=== PATIENT | male | born 1965 | race Caucasian/White ===

== ENCOUNTER 2016-11-12 08:56 | Inpatient (IN) | payer MEDICAID, OTHER ==
[~2016-11-12] VITALS: Ht 188 cm; Wt 119.0 kg
[~2016-11-12 08:56] MED LIST: ALBU8.5H8 INH; ASPI-614 PO; ATOR40TA78 PO; BUPR75TA5 PO; CARV12.52 PO; CLOP75TA52 PO; EZET10TA18 PO; FURO-93 PO; GABA300C10 PO; GLIP10TA13 PO; GLIP5TAB; LISI-170 PO; METF10002 PO; NITR0.4T28 SL; POTA10TA11 PO; PRAS10TA4 PO; SERT25TA PO; SITA100T PO
[2016-11-12 10:12] LABS: HEMATOCRIT 34.3 % (39.2-51.8); HEMOGLOBIN 11.2 g/dL (13.7-18.0); WHITE BLOOD COUNT 8.2 x10^3/uL (3.4-10)
[2016-11-12 10:21] LABS: BLOOD UREA NITROGEN 51 mg/dL (7-18)
[2016-11-12 10:24] LABS: ASPARTATE AMINO TRANSFERASE 11 U/L (15-37)
[2016-11-12] MEDS ORDERED: PLEASE ENTER HEIGHT AND WEIGHT MC SCH (10:30)
[2016-11-12] MEDS ORDERED: NITROGLYCERIN 0.4 MG BOTTLE (25 TABS) SL SCH (10:30)
[2016-11-12] MEDS ORDERED: HEPARIN 5,000 UNITS/ML, 1ML IV ONE (11:30)
[2016-11-12] MEDS ORDERED: HEPARIN 5,000 UNITS/ML, 1ML IV PRN (11:30)
[2016-11-12] MEDS ORDERED: HEPARIN 25,000 UNITS/500ML PMX 500 ML IV PRN (11:30)
[2016-11-12 12:01] VITALS: BP 159/83
[2016-11-12] MEDS: HEPARIN 25,000 UNITS/500ML PMX 500 ML IV PRN (12:51)
[2016-11-12 14:00] LABS: XTAL-FLAG NOT PRESENT; YLC-FLAG NOT PRESENT
[2016-11-12 14:01] LABS: PATH.CAST-FLAG NOT PRESENT; SPERM-FLAG NOT PRESENT; SRC-FLAG NOT PRESENT
[2016-11-12 20:02] VITALS: BP 151/80
[2016-11-12] MEDS: ATORVASTATIN 40 MG TABLET PO SCH (20:04)
[2016-11-12] MEDS: CARVEDILOL 12.5 MG TABLET PO SCH (20:04)
[2016-11-12] MEDS: GABAPENTIN 100 MG CAPSULE PO SCH (20:04)
[2016-11-12] MEDS: HEPARIN 5,000 UNITS/ML, 1ML IV PRN (20:05)
[2016-11-13 01:52] VITALS: BP 155/81
[2016-11-13 02:24] LABS: BLOOD UREA NITROGEN 49 mg/dL (7-18)
[2016-11-13] MEDS: HEPARIN 5,000 UNITS/ML, 1ML IV PRN ×3 (03:13→19:53)
[2016-11-13] MEDS: EZETIMIBE 10 MG TABLET PO SCH (07:57)
[2016-11-13] MEDS: ASPIRIN 81 MG TABLET CHEW PO SCH (07:58)
[2016-11-13] MEDS: FUROSEMIDE 20 MG TABLET PO SCH (07:58)
[2016-11-13] MEDS: CARVEDILOL 12.5 MG TABLET PO SCH ×2 (07:58→19:53)
[2016-11-13] MEDS: GABAPENTIN 100 MG CAPSULE PO SCH ×2 (07:58→19:53)
[2016-11-13] MEDS: SITAGLIPTIN 50MG TABLET PO SCH (07:59)
[2016-11-13] MEDS: SERTRALINE 50MG TABLET PO SCH (07:59)
[2016-11-13 08:01] VITALS: BP 157/78
[2016-11-13] MEDS ORDERED: POTASSIUM CHLORIDE 10 MEQ TABLET.ER PO SCH (09:00)
[2016-11-13] MEDS ORDERED: LISINOPRIL 20 MG TABLET PO SCH (09:00)
[2016-11-13] MEDS ORDERED: AMLODIPINE 5 MG TABLET PO SCH (13:00)
[2016-11-13 13:07] VITALS: BP 137/82
[2016-11-13] MEDS: HEPARIN 25,000 UNITS/500ML PMX 500 ML IV PRN (13:07)
[2016-11-13] MEDS: LISINOPRIL 20 MG TABLET PO SCH (13:58)
[2016-11-13 19:52] VITALS: BP 165/81
[2016-11-13] MEDS: ATORVASTATIN 40 MG TABLET PO SCH (19:53)
[2016-11-14] MEDS: CARVEDILOL MC SCH ×2 (02:30→11:21)
[2016-11-14] MEDS ORDERED: DO NOT GIVE MC SCH (02:30)
[2016-11-14] MEDS ORDERED: CHLORHEXIDINE MOUTHWASH 15 ML UDC MM SCH (02:30)
[2016-11-14] MEDS: METOPROLOL MC SCH ×2 (02:30→11:21)
[2016-11-14] MEDS ORDERED: ACETAMINOPHEN 325 MG TABLET PO PRN ×2 (02:30→12:30)
[2016-11-14] MEDS ORDERED: DO NOT GIVE XX SCH (02:30)
[2016-11-14] MEDS ORDERED: METOPROLOL TARTRATE 25 MG TABLET PO ONE (05:00)
[2016-11-14 05:11] VITALS: BP_SYST 158; BP_SYST 160; BP_DIAS 85; BP_DIAS 88
[2016-11-14] MEDS ORDERED: INSULIN ASPART 100 UNITS/ML, PEN SQ-INSULIN SCH (06:00)
[2016-11-14] MEDS ORDERED: EPINEPHRINE 2 MG in SODIUM CHLORIDE 0.9% 248 ML IV SCH (07:30)
[2016-11-14] MEDS ORDERED: CEFUROXIME 1.5 GM in SODIUM CHLORIDE 0.9% 50 ML IVPB PRN (07:30)
[2016-11-14] MEDS ORDERED: REGULAR INSULIN 62.5 UNITS in SODIUM CHLORIDE 0.9% 249.375 ML IV PRN ×2 (07:30→12:29)
[2016-11-14] MEDS ORDERED: MANNITOL PMX 20% 500 ML IVPB PRN (07:30)
[2016-11-14] MEDS ORDERED: VANCOMYCIN 1,700 MG in SODIUM CHLORIDE 0.9% 250 ML IV PRN (07:30)
[2016-11-14] MEDS ORDERED: POTASSIUM CHLORIDE 80 MEQ, SODIUM BICARBONATE 8.4% 10 MEQ, MAGNESIUM SULFATE 0.5 GM, LI... IV PRN (07:30)
[2016-11-14] MEDS ORDERED: PHENYLEPHRINE 10 MG in SODIUM CHLORIDE 0.9% 249 ML IV PRN ×2 (07:30→12:29)
[2016-11-14] MEDS ORDERED: ALBUMIN HUMAN 5% 500 ML IV ONE (07:30)
[2016-11-14] MEDS ORDERED: DEXMEDETOMIDINE 200 MCG in SODIUM CHLORIDE 0.9% 48 ML IV SCH (07:30)
[2016-11-14] MEDS ORDERED: MIDAZOLAM 10MG/2 ML ONE (07:35)
[2016-11-14] MEDS ORDERED: FENTANYL PF 1000 MCG/20ML ONE (07:35)
[2016-11-14] MEDS ORDERED: ROCURONIUM 10 MG/ML ONE (08:11)
[2016-11-14] MEDS ORDERED: PROPOFOL 10 MG/ML, 20ML ONE (08:11)
[2016-11-14] MEDS ORDERED: MUPIROCIN OINT 2%, 22GM TP SCH (09:00)
[2016-11-14] MEDS ORDERED: SODIUM CHLORIDE FLUSH 10ML SYR IVF SCH (09:00)
[2016-11-14] MEDS ORDERED: HEPARIN 1,000 UNITS/ML, 10ML IV ONE (09:06)
[2016-11-14] MEDS ORDERED: PAPAVERINE 30 MG/ML, 2ML IVPush ONE (09:07)
[2016-11-14] MEDS ORDERED: SODIUM BICARB 8.4%, 50ML SYRINGE ONE ×2 (10:54→12:55)
[2016-11-14] MEDS: CARVEDILOL 12.5 MG TABLET PO SCH (11:19)
[2016-11-14] MEDS: ASPIRIN 81 MG TABLET CHEW PO SCH (11:19)
[2016-11-14] MEDS: GABAPENTIN 100 MG CAPSULE PO SCH ×2 (11:20→22:05)
[2016-11-14] MEDS: LISINOPRIL 20 MG TABLET PO SCH (11:20)
[2016-11-14] MEDS: EZETIMIBE 10 MG TABLET PO SCH (11:20)
[2016-11-14] MEDS: SITAGLIPTIN 50MG TABLET PO SCH (11:20)
[2016-11-14] MEDS: FUROSEMIDE 20 MG TABLET PO SCH (11:20)
[2016-11-14] MEDS: SERTRALINE 50MG TABLET PO SCH (11:20)
[2016-11-14] MEDS ORDERED: NOVOSEVEN RT (FACTOR VIIA) RECOMB 1,000 MCG IVPush ONE (12:00)
[2016-11-14] MEDS ORDERED: SODIUM CHLORIDE 0.9% 1,000 ML IV PRN (12:29)
[2016-11-14] MEDS ORDERED: SODIUM CHLORIDE 0.9% 1,000 ML IV ONE (12:29)
[2016-11-14] MEDS ORDERED: DOBUTAMINE 250 MG in SODIUM CHLORIDE 0.9% 230 ML IV PRN (12:29)
[2016-11-14] MEDS ORDERED: NITROGLYCERIN/D5W PMX 250 ML IV PRN (12:29)
[2016-11-14] MEDS ORDERED: morphine SULFATE 10 MG/ML, 1ML IVPush PRN (12:30)
[2016-11-14] MEDS ORDERED: EPINEPHRINE 2 MG in SODIUM CHLORIDE 0.9% 248 ML IV PRN (12:30)
[2016-11-14] MEDS ORDERED: DEXTROSE 4 GM TAB.CHEW PO PRN (12:30)
[2016-11-14] MEDS ORDERED: PROCHLORPERAZINE 5 MG/ML, 2ML IVPush PRN (12:30)
[2016-11-14] MEDS ORDERED: MEPERIDINE/PF 25MG/0.5ML IVPush PRN (12:30)
[2016-11-14] MEDS ORDERED: CEFUROXIME 1.5 GM in SODIUM CHLORIDE 0.9% 50 ML IVPB SCH (12:30)
[2016-11-14] MEDS ORDERED: SODIUM BICARB 8.4%, 50ML SYRINGE IV PRN (12:30)
[2016-11-14] MEDS ORDERED: DEXTROSE 50%, 50ML SYRINGE IVPush PRN (12:30)
[2016-11-14] MEDS ORDERED: LACTATED RINGERS 500 ML IVBOLUS PRN (12:30)
[2016-11-14] MEDS ORDERED: MIDAZOLAM 1 MG/ML, 5ML IVPush PRN (12:30)
[2016-11-14] MEDS ORDERED: ONDANSETRON 2MG/ML, 2ML IVPush PRN (12:30)
[2016-11-14] MEDS ORDERED: BISACODYL 10 MG SUPP PR PRN (12:30)
[2016-11-14] MEDS ORDERED: ACETAMINOPHEN 650 MG SUPP PR PRN (12:30)
[2016-11-14] MEDS ORDERED: GLUCAGON 1 MG IM PRN (12:30)
[2016-11-14] MEDS ORDERED: PROTAMINE SULFATE 10 MG/ML, 25ML ONE (12:54)
[2016-11-14] MEDS ORDERED: LIDOCAINE 2% 100MG/5ML SYRINGE ONE (12:55)
[2016-11-14] MEDS ORDERED: ALBUMIN HUMAN 25% 50 ML ONE (12:55)
[2016-11-14] MEDS ORDERED: AMINOCAPROIC ACID 250 MG/ML, 20ML ONE (12:55)
[2016-11-14] MEDS ORDERED: HEPARIN 1,000 UNITS/ML, 30ML ONE (12:55)
[2016-11-14] MEDS ORDERED: CALCIUM CHLORIDE 10%, 10ML SYR ONE (12:55)
[2016-11-14] MEDS ORDERED: methylPREDNISolone SOD SUCC 125 MG/2 ML ONE (12:56)
[2016-11-14] MEDS ORDERED: HEPARIN 1,000 UNITS/ML, 10ML ONE (12:56)
[2016-11-14] MEDS ORDERED: PAPAVERINE 30 MG/ML, 2ML ONE (12:56)
[2016-11-14] MEDS ORDERED: MAGNESIUM SULFATE 1 GM in SODIUM CHLORIDE 0.9% 50 ML IVPB SCH (13:00)
[2016-11-14] MEDS ORDERED: DEXMEDETOMIDINE 200 MCG in SODIUM CHLORIDE 0.9% 48 ML IV PRN (13:05)
[2016-11-14 13:11] LABS: ABG COLLECTION SITE ARTERIAL LINE
[2016-11-14 13:16] LABS: HEMATOCRIT 26.7 % (39.2-51.8); HEMOGLOBIN 8.7 g/dL (13.7-18.0)
[2016-11-14] MEDS: MAGNESIUM SULFATE 1 GM in SODIUM CHLORIDE 0.9% 50 ML IVPB SCH (13:21)
[2016-11-14] MEDS: DESMOPRESSIN 24 MCG in SODIUM CHLORIDE 0.9% 50 ML IVPB ONE ×2 (13:43→14:32)
[2016-11-14] MEDS: KSCALE TO 4.5 IV SCH ×2 (13:43→19:00)
[2016-11-14] MEDS ORDERED: ALBUTEROL/IPRATROPIUM 2.5MG/0.5MG, 3 ML ONE (17:35)
[2016-11-14] MEDS ORDERED: ALBUTEROL SULFATE 2.5 MG/3 ML NPPB PRN (18:00)
[2016-11-14] MEDS: OXYcodone IR 5MG TABLET PO PRN (18:15)
[2016-11-14 18:44] LABS: HEMATOCRIT 27.3 % (39.2-51.8); HEMOGLOBIN 8.9 g/dL (13.7-18.0)
[2016-11-14] MEDS: CEFUROXIME 1.5 GM in SODIUM CHLORIDE 0.9% 50 ML IVPB SCH (20:16)
[2016-11-14] MEDS: VANCOMYCIN 1,600 MG in SODIUM CHLORIDE 0.9% 250 ML IVPB SCH (20:58)
[2016-11-14] MEDS: SODIUM CHLORIDE FLUSH 10ML SYR IVF SCH (20:59)
[2016-11-14] MEDS: MUPIROCIN OINT 2%, 22GM NAS SCH (20:59)
[2016-11-14] MEDS: ATORVASTATIN 40 MG TABLET PO SCH (22:05)
[2016-11-14] MEDS: DOCUSATE 100 MG CAPSULE PO SCH (22:05)
[2016-11-14] MEDS: INSULIN ASPART 100 UNITS/ML, PEN SQ-INSULIN PRN ×2 (22:09→23:27)
[2016-11-15] MEDS: INSULIN ASPART 100 UNITS/ML, PEN SQ-INSULIN PRN ×3 (00:22→02:34)
[2016-11-15 00:23] LABS: HEMATOCRIT 27.6 % (39.2-51.8); HEMOGLOBIN 8.4 g/dL (13.7-18.0)
[2016-11-15] MEDS: HYDROcodone/APAP 10/325 MG TABLET PO PRN ×2 (00:27→13:48)
[2016-11-15] MEDS: KSCALE TO 4.5 IV SCH ×3 (00:43→13:00)
[2016-11-15 04:19] LABS: ABG COLLECTION SITE ARTERIAL LINE
[2016-11-15] MEDS: OXYcodone IR 5MG TABLET PO PRN ×5 (04:57→21:58)
[2016-11-15] MEDS: INSULIN ASPART 100 UNITS/ML, PEN SQ-INSULIN SCH ×4 (05:59→21:57)
[2016-11-15 06:03] LABS: HEMATOCRIT 25.4 % (39.2-51.8); HEMOGLOBIN 8.2 g/dL (13.7-18.0); WHITE BLOOD COUNT 12.2 x10^3/uL (3.4-10)
[2016-11-15 06:12] LABS: BLOOD UREA NITROGEN 46 mg/dL (7-18)
[2016-11-15 06:19] VITALS: BP 100/56
[2016-11-15] MEDS: CEFUROXIME 1.5 GM in SODIUM CHLORIDE 0.9% 50 ML IVPB SCH (08:35)
[2016-11-15] MEDS: SERTRALINE 50MG TABLET PO SCH (08:35)
[2016-11-15] MEDS: GABAPENTIN 100 MG CAPSULE PO SCH ×2 (08:35→21:54)
[2016-11-15] MEDS: DOCUSATE 100 MG CAPSULE PO SCH ×2 (08:35→21:54)
[2016-11-15] MEDS: ASPIRIN 81 MG TABLET CHEW PO SCH (08:35)
[2016-11-15] MEDS: EZETIMIBE 10 MG TABLET PO SCH (08:35)
[2016-11-15] MEDS: MUPIROCIN OINT 2%, 22GM NAS SCH ×2 (08:36→21:54)
[2016-11-15] MEDS: SODIUM CHLORIDE FLUSH 10ML SYR IVF SCH ×2 (08:36→21:55)
[2016-11-15] MEDS: PANTOPRAZOLE 40 MG IV IVPush SCH (08:36)
[2016-11-15] MEDS: METOPROLOL TARTRATE 25 MG TABLET PO/NG SCH ×2 (08:45→21:55)
[2016-11-15] MEDS: VANCOMYCIN 1,600 MG in SODIUM CHLORIDE 0.9% 250 ML IVPB SCH (09:43)
[2016-11-15] MEDS: CHLORHEXIDINE MOUTHWASH 15 ML UDC MM SCH (12:05)
[2016-11-15] MEDS: MAGNESIUM SULFATE 1 GM in SODIUM CHLORIDE 0.9% 50 ML IVPB SCH (12:06)
[2016-11-15] MEDS ORDERED: FUROSEMIDE 20 MG/2 ML IV ONE (14:00)
[2016-11-15 18:27] VITALS: BP 107/68
[2016-11-15] MEDS: ATORVASTATIN 40 MG TABLET PO SCH (21:54)
[2016-11-16 00:40] VITALS: BP 108/70
[2016-11-16] MEDS: CHLORHEXIDINE MOUTHWASH 15 ML UDC MM SCH ×2 (01:00→12:30)
[2016-11-16] MEDS: HYDROcodone/APAP 10/325 MG TABLET PO PRN ×4 (01:21→20:57)
[2016-11-16] MEDS: OXYcodone IR 5MG TABLET PO PRN (04:03)
[2016-11-16 05:47] LABS: HEMATOCRIT 25.1 % (39.2-51.8); HEMOGLOBIN 8.2 g/dL (13.7-18.0); WHITE BLOOD COUNT 13.2 x10^3/uL (3.4-10)
[2016-11-16 05:48] LABS: ABG COLLECTION SITE LEFT RADIAL; COLLATERAL CIRCULATION TESTING NORMAL
[2016-11-16 06:13] LABS: BLOOD UREA NITROGEN 60 mg/dL (7-18)
[2016-11-16] MEDS: INSULIN ASPART 100 UNITS/ML, PEN SQ-INSULIN SCH ×6 (06:30→20:57)
[2016-11-16 07:21] VITALS: BP 100/85
[2016-11-16] MEDS: DOCUSATE 100 MG CAPSULE PO SCH ×2 (09:00→20:57)
[2016-11-16] MEDS ORDERED: METOPROLOL TARTRATE 25 MG TABLET PO/NG SCH (09:00)
[2016-11-16] MEDS: GABAPENTIN 100 MG CAPSULE PO SCH ×2 (09:49→20:58)
[2016-11-16] MEDS: SERTRALINE 50MG TABLET PO SCH (09:49)
[2016-11-16] MEDS: PANTOPRAZOLE 40 MG IV IVPush SCH (09:49)
[2016-11-16] MEDS: MUPIROCIN OINT 2%, 22GM NAS SCH ×2 (09:49→20:57)
[2016-11-16] MEDS: ASPIRIN 81 MG TABLET CHEW PO SCH (09:49)
[2016-11-16] MEDS: SODIUM CHLORIDE FLUSH 10ML SYR IVF SCH ×2 (09:50→20:58)
[2016-11-16] MEDS: MAGNESIUM SULFATE 1 GM in SODIUM CHLORIDE 0.9% 50 ML IVPB SCH (12:48)
[2016-11-16 14:15] VITALS: BP 115/74
[2016-11-16] MEDS: CARVEDILOL 6.25 MG TABLET PO SCH (17:52)
[2016-11-16] MEDS ORDERED: CARVEDILOL 12.5 MG TABLET PO SCH (18:00)
[2016-11-16 20:00] VITALS: BP 103/63
[2016-11-16] MEDS: ATORVASTATIN 40 MG TABLET PO SCH (20:57)
[2016-11-17] MEDS: CHLORHEXIDINE MOUTHWASH 15 ML UDC MM SCH (00:07)
[2016-11-17] MEDS: INSULIN ASPART 100 UNITS/ML, PEN SQ-INSULIN SCH ×6 (00:11→21:26)
[2016-11-17 02:00] VITALS: BP 112/71
[2016-11-17] MEDS: HYDROcodone/APAP 10/325 MG TABLET PO PRN ×4 (04:45→21:38)
[2016-11-17] MEDS: CARVEDILOL 6.25 MG TABLET PO SCH ×2 (04:45→17:30)
[2016-11-17 05:32] LABS: BLOOD UREA NITROGEN 68 mg/dL (7-18)
[2016-11-17] MEDS: CLOPIDOGREL 75 MG TABLET PO SCH (08:34)
[2016-11-17] MEDS: DOCUSATE 100 MG CAPSULE PO SCH ×2 (08:34→21:27)
[2016-11-17] MEDS: SERTRALINE 50MG TABLET PO SCH (08:34)
[2016-11-17] MEDS: ASPIRIN 81 MG TABLET CHEW PO SCH (08:34)
[2016-11-17] MEDS: PANTOPRAZOLE 40 MG IV IVPush SCH (08:34)
[2016-11-17] MEDS: GABAPENTIN 100 MG CAPSULE PO SCH ×2 (08:34→21:27)
[2016-11-17] MEDS: SODIUM CHLORIDE FLUSH 10ML SYR IVF SCH ×2 (08:35→21:27)
[2016-11-17] MEDS: MUPIROCIN OINT 2%, 22GM NAS SCH ×2 (08:35→21:26)
[2016-11-17] MEDS: ALBUMIN HUMAN 25% 50 ML IV SCH (13:39)
[2016-11-17 16:00] VITALS: BP 120/71
[2016-11-17 20:50] VITALS: BP 137/81
[2016-11-17] MEDS: ATORVASTATIN 40 MG TABLET PO SCH (21:27)
[2016-11-18] MEDS: INSULIN ASPART 100 UNITS/ML, PEN SQ-INSULIN SCH ×5 (00:04→21:03)
[2016-11-18 01:50] VITALS: BP 123/85
[2016-11-18] MEDS: HYDROcodone/APAP 10/325 MG TABLET PO PRN ×3 (01:57→21:32)
[2016-11-18] MEDS: CARVEDILOL 6.25 MG TABLET PO SCH ×2 (01:58→17:10)
[2016-11-18] MEDS ORDERED: AMIODARONE 150 MG in DEXTROSE 5% 100 ML IV ONE (03:00)
[2016-11-18] MEDS ORDERED: FILTER 0.22 MICRON IV PRN (03:00)
[2016-11-18 04:58] LABS: BLOOD UREA NITROGEN 80 mg/dL (7-18)
[2016-11-18 08:24] VITALS: BP 110/76
[2016-11-18] MEDS: SERTRALINE 50MG TABLET PO SCH (08:37)
[2016-11-18] MEDS: DOCUSATE 100 MG CAPSULE PO SCH ×2 (08:37→21:04)
[2016-11-18] MEDS: MUPIROCIN OINT 2%, 22GM NAS SCH ×2 (08:37→21:04)
[2016-11-18] MEDS: GABAPENTIN 100 MG CAPSULE PO SCH ×2 (08:37→21:04)
[2016-11-18] MEDS: CLOPIDOGREL 75 MG TABLET PO SCH (08:37)
[2016-11-18] MEDS: ASPIRIN 81 MG TABLET CHEW PO SCH (08:37)
[2016-11-18] MEDS: SODIUM CHLORIDE FLUSH 10ML SYR IVF SCH ×2 (08:38→21:03)
[2016-11-18] MEDS: PANTOPRAZOLE 40 MG IV IVPush SCH (08:38)
[2016-11-18] MEDS: ALBUMIN HUMAN 25% 50 ML IV SCH ×2 (09:09→21:04)
[2016-11-18] MEDS: BISACODYL 5 MG EC TABLET PO PRN (10:29)
[2016-11-18 14:10] VITALS: BP 94/62
[2016-11-18] MEDS ORDERED: PROCHLORPERAZINE 5 MG/ML, 2ML IVPush PRN (20:30)
[2016-11-18] MEDS ORDERED: BISACODYL 10 MG SUPP PR PRN (20:30)
[2016-11-18] MEDS ORDERED: DEXTROSE 50%, 50ML SYRINGE IVPush PRN (20:30)
[2016-11-18] MEDS ORDERED: ACETAMINOPHEN 650 MG SUPP PR PRN (20:30)
[2016-11-18] MEDS ORDERED: ACETAMINOPHEN 325 MG TABLET PO PRN (20:30)
[2016-11-18] MEDS ORDERED: GLUCAGON 1 MG IM PRN (20:30)
[2016-11-18] MEDS ORDERED: DEXTROSE 4 GM TAB.CHEW PO PRN (20:30)
[2016-11-18] MEDS ORDERED: ONDANSETRON 2MG/ML, 2ML IVPush PRN (20:30)
[2016-11-18 21:00] VITALS: BP 108/70
[2016-11-18] MEDS: ATORVASTATIN 40 MG TABLET PO SCH (21:05)
[2016-11-18] MEDS: AMIODARONE 200 MG TABLET PO SCH (22:02)
[2016-11-19] VITALS (15 sets, daily range): BP systolic 77–118; BP diastolic 46–72
[2016-11-19] MEDS: HYDROcodone/APAP 10/325 MG TABLET PO PRN ×3 (04:45→23:08)
[2016-11-19 05:33] LABS: BLOOD UREA NITROGEN 84 mg/dL (7-18)
[2016-11-19] MEDS: CARVEDILOL 6.25 MG TABLET PO SCH ×2 (06:10→17:44)
[2016-11-19 08:32] LABS: HEMATOCRIT 24.6 % (39.2-51.8); WHITE BLOOD COUNT 7.3 x10^3/uL (3.4-10)
[2016-11-19] MEDS: SERTRALINE 50MG TABLET PO SCH (08:32)
[2016-11-19] MEDS: INSULIN ASPART 100 UNITS/ML, PEN SQ-INSULIN SCH ×4 (08:32→22:54)
[2016-11-19] MEDS: ASPIRIN 81 MG TABLET CHEW PO SCH (08:33)
[2016-11-19] MEDS: DOCUSATE 100 MG CAPSULE PO SCH ×2 (08:33→22:53)
[2016-11-19] MEDS: AMIODARONE 200 MG TABLET PO SCH ×2 (08:33→22:55)
[2016-11-19] MEDS: CLOPIDOGREL 75 MG TABLET PO SCH (08:33)
[2016-11-19] MEDS: BISACODYL 5 MG EC TABLET PO PRN (08:33)
[2016-11-19] MEDS: MUPIROCIN OINT 2%, 22GM NAS SCH (08:33)
[2016-11-19] MEDS: PANTOPRAZOLE 40 MG IV IVPush SCH (08:34)
[2016-11-19] MEDS: SODIUM CHLORIDE FLUSH 10ML SYR IVF SCH ×2 (08:34→22:52)
[2016-11-19] MEDS: ALBUMIN HUMAN 25% 50 ML IV SCH ×2 (11:32→22:53)
[2016-11-19] MEDS: GABAPENTIN 100 MG CAPSULE PO SCH ×2 (11:32→22:53)
[2016-11-19] MEDS: MAGNESIUM HYDROXIDE 8%, 30ML UDC PO PRN (18:01)
[2016-11-19] MEDS: ATORVASTATIN 40 MG TABLET PO SCH (22:53)
[2016-11-20] VITALS (7 sets, daily range): BP systolic 97–124; BP diastolic 59–73
[2016-11-20] MEDS: HYDROcodone/APAP 10/325 MG TABLET PO PRN ×4 (05:45→21:29)
[2016-11-20] MEDS: CARVEDILOL 6.25 MG TABLET PO SCH ×2 (05:47→16:53)
[2016-11-20 06:32] LABS: BLOOD UREA NITROGEN 96 mg/dL (7-18)
[2016-11-20 09:04] LABS: HEMATOCRIT 25.1 % (39.2-51.8); HEMOGLOBIN 8.2 g/dL (13.7-18.0); WHITE BLOOD COUNT 7.7 x10^3/uL (3.4-10)
[2016-11-20] MEDS: ASPIRIN 81 MG TABLET CHEW PO SCH (09:20)
[2016-11-20] MEDS: GABAPENTIN 100 MG CAPSULE PO SCH ×2 (09:20→21:29)
[2016-11-20] MEDS: AMIODARONE 200 MG TABLET PO SCH ×2 (09:20→21:29)
[2016-11-20] MEDS: CLOPIDOGREL 75 MG TABLET PO SCH (09:20)
[2016-11-20] MEDS: PANTOPRAZOLE 40 MG IV IVPush SCH (09:20)
[2016-11-20] MEDS: SERTRALINE 50MG TABLET PO SCH (09:20)
[2016-11-20] MEDS: DOCUSATE 100 MG CAPSULE PO SCH ×2 (09:20→21:29)
[2016-11-20] MEDS: SODIUM CHLORIDE FLUSH 10ML SYR IVF SCH ×2 (09:21→21:30)
[2016-11-20] MEDS: ALBUMIN HUMAN 25% 50 ML IV SCH (09:21)
[2016-11-20] MEDS: INSULIN ASPART 100 UNITS/ML, PEN SQ-INSULIN SCH ×4 (09:21→21:30)
[2016-11-20] MEDS: HEPARIN 5,000 UNITS/ML, 1ML SQ SCH ×2 (14:21→21:29)
[2016-11-20] MEDS: ATORVASTATIN 40 MG TABLET PO SCH (21:29)
[2016-11-21 01:34] VITALS: BP 94/63
[2016-11-21] MEDS: HEPARIN 5,000 UNITS/ML, 1ML SQ SCH ×3 (05:42→20:46)
[2016-11-21] MEDS: BISACODYL 5 MG EC TABLET PO PRN (05:42)
[2016-11-21] MEDS: HYDROcodone/APAP 10/325 MG TABLET PO PRN ×3 (05:42→20:47)
[2016-11-21 05:43] VITALS: BP 101/63
[2016-11-21 06:18] LABS: HEMATOCRIT 24.7 % (39.2-51.8); WHITE BLOOD COUNT 7.6 x10^3/uL (3.4-10)
[2016-11-21 06:26] LABS: BLOOD UREA NITROGEN 97 mg/dL (7-18)
[2016-11-21 06:57] VITALS: BP 110/70
[2016-11-21] MEDS: INSULIN ASPART 100 UNITS/ML, PEN SQ-INSULIN SCH ×4 (08:03→20:46)
[2016-11-21] MEDS: GABAPENTIN 100 MG CAPSULE PO SCH ×2 (08:04→20:46)
[2016-11-21] MEDS: SERTRALINE 50MG TABLET PO SCH (08:04)
[2016-11-21] MEDS: CLOPIDOGREL 75 MG TABLET PO SCH (08:04)
[2016-11-21] MEDS: PANTOPRAZOLE 40 MG IV IVPush SCH (08:04)
[2016-11-21] MEDS: SODIUM CHLORIDE FLUSH 10ML SYR IVF SCH ×2 (08:05→20:46)
[2016-11-21] MEDS: AMIODARONE 200 MG TABLET PO SCH ×2 (08:05→20:46)
[2016-11-21] MEDS: DOCUSATE 100 MG CAPSULE PO SCH ×2 (08:05→20:46)
[2016-11-21] MEDS: ASPIRIN 81 MG TABLET CHEW PO SCH (08:05)
[2016-11-21] MEDS: CARVEDILOL 6.25 MG TABLET PO SCH ×2 (08:05→18:35)
[2016-11-21 15:06] VITALS: BP 101/61
[2016-11-21 19:46] VITALS: BP_SYST 93; BP_SYST 95; BP_DIAS 58
[2016-11-21 20:38] VITALS: BP 101/61
[2016-11-21] MEDS: ATORVASTATIN 40 MG TABLET PO SCH (20:46)
[2016-11-22] VITALS (15 sets, daily range): BP systolic 103–137; BP diastolic 63–80
[2016-11-22] MEDS: HYDROcodone/APAP 10/325 MG TABLET PO PRN ×2 (05:29→21:15)
[2016-11-22] MEDS: MAGNESIUM HYDROXIDE 8%, 30ML UDC PO PRN (05:30)
[2016-11-22] MEDS: HEPARIN 5,000 UNITS/ML, 1ML SQ SCH ×3 (05:30→21:13)
[2016-11-22] MEDS: BISACODYL 5 MG EC TABLET PO PRN (05:30)
[2016-11-22 05:36] LABS: HEMATOCRIT 24.1 % (39.2-51.8); HEMOGLOBIN 7.9 g/dL (13.7-18.0); WHITE BLOOD COUNT 7.8 x10^3/uL (3.4-10)
[2016-11-22 05:53] LABS: BLOOD UREA NITROGEN 109 mg/dL (7-18)
[2016-11-22] MEDS: CARVEDILOL 6.25 MG TABLET PO SCH ×2 (08:00→21:13)
[2016-11-22] MEDS: INSULIN ASPART 100 UNITS/ML, PEN SQ-INSULIN SCH ×4 (08:12→21:15)
[2016-11-22] MEDS: CLOPIDOGREL 75 MG TABLET PO SCH (08:12)
[2016-11-22] MEDS: GABAPENTIN 100 MG CAPSULE PO SCH ×2 (08:12→21:13)
[2016-11-22] MEDS: SODIUM CHLORIDE FLUSH 10ML SYR IVF SCH ×2 (08:12→23:26)
[2016-11-22] MEDS: PANTOPRAZOLE 40 MG IV IVPush SCH (08:12)
[2016-11-22] MEDS: ASPIRIN 81 MG TABLET CHEW PO SCH (08:13)
[2016-11-22] MEDS: SERTRALINE 50MG TABLET PO SCH (08:13)
[2016-11-22] MEDS: DOCUSATE 100 MG CAPSULE PO SCH ×2 (08:13→21:12)
[2016-11-22] MEDS: AMIODARONE 200 MG TABLET PO SCH ×2 (08:13→21:14)
[2016-11-22 16:08] LABS: HEP B SURF. AB > 1000.0 mIU/mL (0.0-10.0)
[2016-11-22] MEDS: ATORVASTATIN 40 MG TABLET PO SCH (21:13)
[2016-11-23 00:45] VITALS: BP 109/62
[2016-11-23] MEDS: HYDROcodone/APAP 10/325 MG TABLET PO PRN ×2 (02:10→06:09)
[2016-11-23] MEDS: CARVEDILOL 6.25 MG TABLET PO SCH ×2 (05:54→18:00)
[2016-11-23 05:57] LABS: BLOOD UREA NITROGEN 74 mg/dL (7-18)
[2016-11-23] MEDS: HEPARIN 5,000 UNITS/ML, 1ML SQ SCH ×3 (06:09→21:13)
[2016-11-23 07:58] VITALS: BP 110/65
[2016-11-23] MEDS: INSULIN ASPART 100 UNITS/ML, PEN SQ-INSULIN SCH ×4 (09:01→21:14)
[2016-11-23] MEDS: SERTRALINE 50MG TABLET PO SCH (09:03)
[2016-11-23] MEDS: AMIODARONE 200 MG TABLET PO SCH ×2 (09:03→21:00)
[2016-11-23] MEDS: CLOPIDOGREL 75 MG TABLET PO SCH (09:03)
[2016-11-23] MEDS: GABAPENTIN 100 MG CAPSULE PO SCH ×2 (09:03→21:13)
[2016-11-23] MEDS: DOCUSATE 100 MG CAPSULE PO SCH ×2 (09:03→21:13)
[2016-11-23] MEDS: PANTOPRAZOLE 40 MG IV IVPush SCH (09:03)
[2016-11-23] MEDS: ASPIRIN 81 MG TABLET CHEW PO SCH (09:03)
[2016-11-23] MEDS: SODIUM CHLORIDE FLUSH 10ML SYR IVF SCH ×2 (09:10→21:13)
[2016-11-23 09:37] LABS: HEMATOCRIT 29.8 % (39.2-51.8); HEMOGLOBIN 9.8 g/dL (13.7-18.0); WHITE BLOOD COUNT 11.1 x10^3/uL (3.4-10)
[2016-11-23] MEDS ORDERED: AMIODARONE 150 MG in DEXTROSE 5% 100 ML IV ONE (11:30)
[2016-11-23 13:26] VITALS: BP 130/70
[2016-11-23] MEDS ORDERED: CODE BLUE RESPONSE XX ONE (15:00)
[2016-11-23 16:00] LABS: ABG COLLECTION SITE LEFT BRACHIAL
[2016-11-23] MEDS ORDERED: EPINEPHRINE 4 MG in SODIUM CHLORIDE 0.9% 246 ML IV PRN (16:00)
[2016-11-23 16:04] LABS: HEMATOCRIT 27.5 % (39.2-51.8); HEMOGLOBIN 9.1 g/dL (13.7-18.0); WHITE BLOOD COUNT 17.6 x10^3/uL (3.4-10)
[2016-11-23 16:08] LABS: BLOOD UREA NITROGEN 83 mg/dL (7-18)
[2016-11-23 16:29] LABS: DIFF TOTAL CELLS COUNTED 100 CELL DIFF
[2016-11-23] MEDS: ALBUTEROL/IPRATROPIUM 2.5MG/0.5MG, 3 ML INLINE SCH ×3 (16:30→22:00)
[2016-11-23] MEDS ORDERED: SENNA/DOCUSATE TABLET NG PRN (16:30)
[2016-11-23] MEDS ORDERED: PHARMACY MAY ADJ FOR RENAL FX MC SCH (16:30)
[2016-11-23] MEDS ORDERED: LIDOCAINE-MPF 1%, 2ML ENDO PRN (16:30)
[2016-11-23] MEDS ORDERED: SENNOSIDES 8.8 MG/5 ML ORAL SOL NG PRN (16:30)
[2016-11-23] MEDS ORDERED: PROPOFOL 100 ML IV PRN (16:30)
[2016-11-23] MEDS ORDERED: BISACODYL 10 MG SUPP PR PRN (16:30)
[2016-11-23] MEDS ORDERED: EPINEPHRINE 1 MG in SODIUM CHLORIDE 0.9% 249 ML IV PRN (16:30)
[2016-11-23 16:33] LABS: VERIFY COUNTS? YES
[2016-11-23 16:34] LABS: ANISOCYTOSIS 1+
[2016-11-23 16:35] LABS: POLYCHROMASIA 1+
[2016-11-23] MEDS: FILTER 0.22 MICRON IV PRN (21:13)
[2016-11-23] MEDS: PIPERACILLIN/TAZO 2.25 GM in SODIUM CHLORIDE 0.9% 50 ML IV SCH (21:13)
[2016-11-23] MEDS: ATORVASTATIN 40 MG TABLET PO SCH (21:13)
[2016-11-23] MEDS: FENTANYL PF 100 MCG/2ML IVPush PRN (21:14)
[2016-11-23] MEDS: AMIODARONE 900 MG in DEXTROSE 5% 482 ML IV PRN (21:15)
[2016-11-24] MEDS: FENTANYL PF 100 MCG/2ML IVPush PRN ×3 (00:16→04:14)
[2016-11-24] MEDS: ALBUTEROL/IPRATROPIUM 2.5MG/0.5MG, 3 ML INLINE SCH ×2 (01:28→06:52)
[2016-11-24] MEDS: PIPERACILLIN/TAZO 2.25 GM in SODIUM CHLORIDE 0.9% 50 ML IV SCH ×4 (03:19→21:00)
[2016-11-24 04:09] LABS: BLOOD UREA NITROGEN 55 mg/dL (7-18)
[2016-11-24 04:11] LABS: HEMATOCRIT 26.8 % (39.2-51.8); HEMOGLOBIN 8.8 g/dL (13.7-18.0); WHITE BLOOD COUNT 13.4 x10^3/uL (3.4-10)
[2016-11-24 04:12] LABS: ASPARTATE AMINO TRANSFERASE 19 U/L (15-37)
[2016-11-24 04:36] LABS: ABG COLLECTION SITE NOT DOCUMENTED
[2016-11-24] MEDS: CARVEDILOL 6.25 MG TABLET PO SCH ×2 (05:09→17:29)
[2016-11-24] MEDS: HEPARIN 5,000 UNITS/ML, 1ML SQ SCH ×3 (05:27→21:02)
[2016-11-24] MEDS: INSULIN ASPART 100 UNITS/ML, PEN SQ-INSULIN SCH ×4 (05:28→21:03)
[2016-11-24] MEDS: HYDROcodone/APAP 10/325 MG TABLET PO PRN ×3 (08:55→23:46)
[2016-11-24] MEDS: SERTRALINE 50MG TABLET PO SCH (09:00)
[2016-11-24] MEDS: ASPIRIN 81 MG TABLET CHEW PO SCH (10:51)
[2016-11-24] MEDS: DOCUSATE 100 MG CAPSULE PO SCH ×2 (10:51→21:01)
[2016-11-24] MEDS: GABAPENTIN 100 MG CAPSULE PO SCH ×2 (10:52→21:01)
[2016-11-24] MEDS: CLOPIDOGREL 75 MG TABLET PO SCH (10:52)
[2016-11-24] MEDS: PANTOPRAZOLE 40 MG IV IV SCH (10:52)
[2016-11-24] MEDS: AMIODARONE 200 MG TABLET PO SCH ×2 (10:52→21:00)
[2016-11-24] MEDS: SODIUM CHLORIDE FLUSH 10ML SYR IVF SCH ×2 (10:55→21:30)
[2016-11-24] MEDS: OXYcodone IR 5MG TABLET PO PRN ×3 (11:03→21:01)
[2016-11-24] MEDS ORDERED: ALBUMIN HUMAN 25% 50 ML IV PRN (19:00)
[2016-11-24] MEDS: ATORVASTATIN 40 MG TABLET PO SCH (21:00)
[2016-11-25] MEDS: HYDROcodone/APAP 10/325 MG TABLET PO PRN ×4 (03:21→21:23)
[2016-11-25] MEDS: FILTER 0.22 MICRON IV PRN (03:22)
[2016-11-25] MEDS: AMIODARONE 900 MG in DEXTROSE 5% 482 ML IV PRN (03:22)
[2016-11-25] MEDS: PIPERACILLIN/TAZO 2.25 GM in SODIUM CHLORIDE 0.9% 50 ML IV SCH ×4 (03:22→20:52)
[2016-11-25 04:26] LABS: ABG COLLECTION SITE RIGHT BRACHIAL
[2016-11-25 04:59] LABS: HEMATOCRIT 26.4 % (39.2-51.8); HEMOGLOBIN 8.7 g/dL (13.7-18.0); WHITE BLOOD COUNT 12.1 x10^3/uL (3.4-10)
[2016-11-25 05:14] LABS: BLOOD UREA NITROGEN 40 mg/dL (7-18)
[2016-11-25] MEDS: OXYcodone IR 5MG TABLET PO PRN ×2 (05:36→11:24)
[2016-11-25] MEDS: CARVEDILOL 6.25 MG TABLET PO SCH (05:36)
[2016-11-25] MEDS: INSULIN ASPART 100 UNITS/ML, PEN SQ-INSULIN SCH ×4 (05:37→20:55)
[2016-11-25] MEDS: HEPARIN 5,000 UNITS/ML, 1ML SQ SCH (05:37)
[2016-11-25] MEDS: DOCUSATE 100 MG CAPSULE PO SCH ×2 (08:54→20:52)
[2016-11-25] MEDS: GABAPENTIN 100 MG CAPSULE PO SCH ×2 (08:54→20:52)
[2016-11-25] MEDS: ASPIRIN 81 MG TABLET CHEW PO SCH (08:54)
[2016-11-25] MEDS: SERTRALINE 50MG TABLET PO SCH (08:54)
[2016-11-25] MEDS: AMIODARONE 200 MG TABLET PO SCH ×2 (08:54→20:52)
[2016-11-25] MEDS: CLOPIDOGREL 75 MG TABLET PO SCH (08:54)
[2016-11-25] MEDS: SODIUM CHLORIDE FLUSH 10ML SYR IVF SCH ×2 (08:54→20:51)
[2016-11-25] MEDS: PANTOPRAZOLE 40 MG IV IV SCH (08:54)
[2016-11-25] MEDS: LACTULOSE 20 GM/30 ML UDC NG PRN (08:55)
[2016-11-25] MEDS: MAGNESIUM HYDROXIDE 8%, 30ML UDC PO PRN (08:55)
[2016-11-25] MEDS ORDERED: METHYLNALTREXONE 12 MG/0.6 ML SQ ONE (09:30)
[2016-11-25] MEDS ORDERED: [UNRECOGNIZED DRUG - REMARK] MC PRN ×2 (10:30→19:30)
[2016-11-25] MEDS: HEPARIN 25,000 UNITS/500ML PMX 500 ML IV PRN (11:30)
[2016-11-25] MEDS ORDERED: ACETAMINOPHEN 650 MG SUPP PR PRN (19:30)
[2016-11-25] MEDS ORDERED: DO NOT GIVE XX SCH (19:30)
[2016-11-25] MEDS ORDERED: PHARMACY MAY ADJ FOR RENAL FX MC SCH (19:30)
[2016-11-25] MEDS ORDERED: DEXTROSE 50%, 50ML SYRINGE IVPush PRN (19:30)
[2016-11-25] MEDS ORDERED: ONDANSETRON 2MG/ML, 2ML IVPush PRN (19:30)
[2016-11-25] MEDS ORDERED: SENNOSIDES 8.8 MG/5 ML ORAL SOL NG PRN (19:30)
[2016-11-25] MEDS ORDERED: LIDOCAINE-MPF 1%, 2ML ENDO PRN (19:30)
[2016-11-25] MEDS ORDERED: DEXTROSE 4 GM TAB.CHEW PO PRN (19:30)
[2016-11-25] MEDS ORDERED: GLUCAGON 1 MG IM PRN (19:30)
[2016-11-25] MEDS ORDERED: PROCHLORPERAZINE 5 MG/ML, 2ML IVPush PRN (19:30)
[2016-11-25] MEDS ORDERED: BISACODYL 10 MG SUPP PR PRN ×2 (19:30)
[2016-11-25] MEDS ORDERED: ACETAMINOPHEN 325 MG TABLET PO PRN (19:30)
[2016-11-25] MEDS ORDERED: DO NOT GIVE MC SCH (19:30)
[2016-11-25] MEDS: ATORVASTATIN 40 MG TABLET PO SCH (20:52)
[2016-11-26] VITALS (7 sets, daily range): BP systolic 89–101; BP diastolic 49–61
[2016-11-26] MEDS: OXYcodone IR 5MG TABLET PO PRN ×4 (00:14→15:33)
[2016-11-26] MEDS: HYDROcodone/APAP 10/325 MG TABLET PO PRN ×2 (02:45→20:53)
[2016-11-26] MEDS: PIPERACILLIN/TAZO 2.25 GM in SODIUM CHLORIDE 0.9% 50 ML IV SCH ×4 (02:45→20:53)
[2016-11-26] MEDS: AMIODARONE 900 MG in DEXTROSE 5% 482 ML IV PRN (03:53)
[2016-11-26] MEDS: HEPARIN 25,000 UNITS/500ML PMX 500 ML IV PRN ×2 (03:55→18:41)
[2016-11-26] MEDS: FILTER 0.22 MICRON IV PRN (03:56)
[2016-11-26 04:29] LABS: ABG COLLECTION SITE RIGHT BRACHIAL
[2016-11-26 05:20] LABS: BLOOD UREA NITROGEN 51 mg/dL (7-18)
[2016-11-26 05:21] LABS: HEMATOCRIT 25.3 % (39.2-51.8); HEMOGLOBIN 8.2 g/dL (13.7-18.0); WHITE BLOOD COUNT 15.6 x10^3/uL (3.4-10)
[2016-11-26] MEDS: CLOPIDOGREL 75 MG TABLET PO SCH (08:34)
[2016-11-26] MEDS: GABAPENTIN 100 MG CAPSULE PO SCH ×2 (08:34→20:54)
[2016-11-26] MEDS: SERTRALINE 50MG TABLET PO SCH (08:34)
[2016-11-26] MEDS: PANTOPROZOLE 40MG TABLET PO SCH (08:34)
[2016-11-26] MEDS: INSULIN ASPART 100 UNITS/ML, PEN SQ-INSULIN SCH ×4 (08:34→20:53)
[2016-11-26] MEDS: ASPIRIN 81 MG TABLET CHEW PO SCH (08:34)
[2016-11-26] MEDS: DOCUSATE 100 MG CAPSULE PO SCH ×2 (08:34→20:54)
[2016-11-26] MEDS: AMIODARONE 200 MG TABLET PO SCH ×2 (08:35→20:54)
[2016-11-26] MEDS: SODIUM CHLORIDE FLUSH 10ML SYR IVF SCH ×2 (08:35→20:46)
[2016-11-26] MEDS: ATORVASTATIN 40 MG TABLET PO SCH (20:54)
[2016-11-27] MEDS: PIPERACILLIN/TAZO 2.25 GM in SODIUM CHLORIDE 0.9% 50 ML IV SCH ×4 (03:02→23:06)
[2016-11-27] MEDS: HYDROcodone/APAP 10/325 MG TABLET PO PRN ×2 (03:57→20:06)
[2016-11-27 04:00] VITALS: BP 105/58
[2016-11-27 04:23] LABS: BLOOD UREA NITROGEN 40 mg/dL (7-18)
[2016-11-27 04:31] LABS: HEMATOCRIT 29.2 % (39.2-51.8); HEMOGLOBIN 9.4 g/dL (13.7-18.0); WHITE BLOOD COUNT 13.1 x10^3/uL (3.4-10)
[2016-11-27 04:34] LABS: ABG COLLECTION SITE RIGHT RADIAL; COLLATERAL CIRCULATION TESTING NORMAL
[2016-11-27] MEDS: OXYcodone IR 5MG TABLET PO PRN (06:32)
[2016-11-27] MEDS ORDERED: FENTANYL PF 100 MCG/2ML ONE (07:34)
[2016-11-27] MEDS ORDERED: MIDAZOLAM 1 MG/ML, 5ML ONE (07:34)
[2016-11-27] MEDS ORDERED: NITROGLYCERIN 5 MG/ML, 10ML ONE (07:34)
[2016-11-27] MEDS ORDERED: BIVALIRUDIN 250 MG ONE ×2 (07:35)
[2016-11-27] MEDS ORDERED: TICAGRELOR 90 MG TABLET ONE (07:35)
[2016-11-27] MEDS ORDERED: LIDOCAINE 2%, 20ML ONE (07:35)
[2016-11-27] MEDS: INSULIN ASPART 100 UNITS/ML, PEN SQ-INSULIN SCH ×4 (07:45→20:06)
[2016-11-27] MEDS: SODIUM CHLORIDE FLUSH 10ML SYR IVF SCH ×2 (08:30→20:07)
[2016-11-27] MEDS ORDERED: NALOXONE 0.4 MG/ML, 1ML ONE (08:41)
[2016-11-27] MEDS ORDERED: ATROPINE SYRINGE 0.1 MG/ML, 10ML ONE (08:41)
[2016-11-27] MEDS: DOCUSATE 100 MG CAPSULE PO SCH ×2 (08:55→20:08)
[2016-11-27] MEDS: ASPIRIN 81 MG TABLET CHEW PO SCH (08:55)
[2016-11-27] MEDS: PANTOPROZOLE 40MG TABLET PO SCH (08:55)
[2016-11-27] MEDS: AMIODARONE 200 MG TABLET PO SCH ×2 (08:56→20:38)
[2016-11-27] MEDS: GABAPENTIN 100 MG CAPSULE PO SCH ×2 (08:56→20:08)
[2016-11-27] MEDS: CLOPIDOGREL 75 MG TABLET PO SCH (08:56)
[2016-11-27] MEDS: SERTRALINE 50MG TABLET PO SCH (08:56)
[2016-11-27 10:35] LABS: HEMATOCRIT 27.1 % (39.2-51.8); HEMOGLOBIN 8.9 g/dL (13.7-18.0); WHITE BLOOD COUNT 12.3 x10^3/uL (3.4-10)
[2016-11-27] MEDS ORDERED: LIDOCAINE 1%, 20ML ONE (12:46)
[2016-11-27 13:44] LABS: CYTOLOGY BODY FLUID RECD INTO PATHOLOGY; CYTOLOGY BODY FLUID SOURCE PLEURAL FLUID
[2016-11-27] MEDS: ATORVASTATIN 40 MG TABLET PO SCH (20:07)
[2016-11-27] MEDS: HEPARIN 25,000 UNITS/500ML PMX 500 ML IV PRN (21:10)
[2016-11-28] MEDS: HYDROcodone/APAP 10/325 MG TABLET PO PRN ×5 (00:03→20:29)
[2016-11-28 04:00] VITALS: BP 114/54
[2016-11-28 04:03] LABS: HEMATOCRIT 27.4 % (39.2-51.8)
[2016-11-28 04:15] LABS: BLOOD UREA NITROGEN 54 mg/dL (7-18)
[2016-11-28] MEDS: PIPERACILLIN/TAZO 2.25 GM in SODIUM CHLORIDE 0.9% 50 ML IV SCH ×3 (06:17→20:30)
[2016-11-28] MEDS: AMIODARONE 200 MG TABLET PO SCH ×2 (09:00→20:18)
[2016-11-28] MEDS: CLOPIDOGREL 75 MG TABLET PO SCH (09:05)
[2016-11-28] MEDS: GABAPENTIN 100 MG CAPSULE PO SCH ×2 (09:05→20:29)
[2016-11-28] MEDS: INSULIN ASPART 100 UNITS/ML, PEN SQ-INSULIN SCH ×4 (09:05→20:36)
[2016-11-28] MEDS: SODIUM CHLORIDE FLUSH 10ML SYR IVF SCH ×2 (09:05→20:30)
[2016-11-28] MEDS: ASPIRIN 81 MG TABLET CHEW PO SCH (09:05)
[2016-11-28] MEDS: DOCUSATE 100 MG CAPSULE PO SCH ×2 (09:05→20:29)
[2016-11-28] MEDS: PANTOPROZOLE 40MG TABLET PO SCH (09:05)
[2016-11-28] MEDS: HEPARIN 25,000 UNITS/500ML PMX 500 ML IV PRN ×2 (10:13→20:44)
[2016-11-28] MEDS: ATORVASTATIN 40 MG TABLET PO SCH (20:29)
[2016-11-29] MEDS: HYDROcodone/APAP 10/325 MG TABLET PO PRN ×2 (01:21→07:25)
[2016-11-29 04:00] VITALS: BP 112/54
[2016-11-29] MEDS: PIPERACILLIN/TAZO 2.25 GM in SODIUM CHLORIDE 0.9% 50 ML IV SCH ×3 (04:44→21:06)
[2016-11-29 05:27] LABS: HEMATOCRIT 23.9 % (39.2-51.8); HEMOGLOBIN 7.8 g/dL (13.7-18.0); WHITE BLOOD COUNT 12.8 x10^3/uL (3.4-10)
[2016-11-29 05:55] LABS: BLOOD UREA NITROGEN 45 mg/dL (7-18)
[2016-11-29] MEDS: HEPARIN 25,000 UNITS/500ML PMX 500 ML IV PRN (07:18)
[2016-11-29] MEDS: GABAPENTIN 100 MG CAPSULE PO SCH (07:25)
[2016-11-29] MEDS: ASPIRIN 81 MG TABLET CHEW PO SCH (07:25)
[2016-11-29] MEDS: PANTOPROZOLE 40MG TABLET PO SCH (07:25)
[2016-11-29] MEDS: CLOPIDOGREL 75 MG TABLET PO SCH (07:25)
[2016-11-29] MEDS: DOCUSATE 100 MG CAPSULE PO SCH (07:25)
[2016-11-29] MEDS: SODIUM CHLORIDE FLUSH 10ML SYR IVF SCH ×2 (07:25→20:28)
[2016-11-29] MEDS: INSULIN ASPART 100 UNITS/ML, PEN SQ-INSULIN SCH ×4 (07:25→21:10)
[2016-11-29] MEDS ORDERED: MAGNESIUM HYDROXIDE 8%, 30ML UDC ONE (14:15)
[2016-11-29] MEDS: MAGNESIUM HYDROXIDE 8%, 30ML UDC PO PRN (15:12)
[2016-11-29] MEDS: LACTULOSE 20 GM/30 ML UDC NG PRN (15:12)
[2016-11-29] MEDS ORDERED: HEPARIN 25,000 UNITS/500ML PMX 500 ML ONE (17:29)
[2016-11-29] MEDS ORDERED: LIDOCAINE 2% 100MG/5ML SYRINGE ONE (17:30)
[2016-11-29] MEDS ORDERED: MAGNESIUM SULFATE 8 MEQ/2 ML, 2ML ONE (17:30)
[2016-11-29 18:07] LABS: ABG COLLECTION SITE RIGHT RADIAL; COLLATERAL CIRCULATION TESTING NORMAL
[2016-11-29 18:19] LABS: ASPARTATE AMINO TRANSFERASE 10 U/L (15-37); BLOOD UREA NITROGEN 55 mg/dL (7-18)
[2016-11-29 18:35] LABS: HEMOGLOBIN 7.5 g/dL (13.7-18.0); WHITE BLOOD COUNT 20.9 x10^3/uL (3.4-10)
[2016-11-29 18:37] LABS: HEMATOCRIT 22.7 % (39.2-51.8)
[2016-11-29 18:38] LABS: DIFF TOTAL CELLS COUNTED 100 CELL DIFF
[2016-11-29] MEDS ORDERED: PHENYLEPHRINE 10 MG in SODIUM CHLORIDE 0.9% 249 ML IV PRN (19:00)
[2016-11-29] MEDS ORDERED: AMIODARONE 150 MG in DEXTROSE 5% 100 ML IV ONE (19:00)
[2016-11-29] MEDS ORDERED: AMIODARONE 900 MG in DEXTROSE 5% 482 ML IV PRN (19:00)
[2016-11-29] MEDS ORDERED: LIDOCAINE/DEX 5% IV,2GM/500ML 500 ML IV PRN ×4 (19:00→19:30)
[2016-11-29 19:06] LABS: ANISOCYTOSIS 1+; VERIFY COUNTS? YES
[2016-11-29 19:07] LABS: HYPOCHROMIA 1+; OVALOCYTES 1+; POLYCHROMASIA 1+
[2016-11-29] MEDS ORDERED: FILTER 0.22 MICRON IV PRN (19:30)
[2016-11-29] MEDS ORDERED: GLUCAGON 1 MG IM PRN (20:30)
[2016-11-29] MEDS ORDERED: LIDOCAINE-MPF 1%, 2ML ENDO PRN (20:30)
[2016-11-29] MEDS ORDERED: FENTANYL PF 100 MCG/2ML IVPush PRN (20:30)
[2016-11-29] MEDS ORDERED: HYDROcodone/APAP 10/325 MG TABLET PO PRN (20:30)
[2016-11-29] MEDS ORDERED: ACETAMINOPHEN 325 MG TABLET PO PRN ×2 (20:30)
[2016-11-29] MEDS ORDERED: BISACODYL 10 MG SUPP PR PRN ×2 (20:30)
[2016-11-29] MEDS ORDERED: SENNA/DOCUSATE TABLET NG PRN (20:30)
[2016-11-29] MEDS ORDERED: OXYcodone IR 5MG TABLET PO PRN (20:30)
[2016-11-29] MEDS ORDERED: DEXTROSE 50%, 50ML SYRINGE IVPush PRN (20:30)
[2016-11-29] MEDS ORDERED: LACTULOSE 20 GM/30 ML UDC NG PRN (20:30)
[2016-11-29] MEDS ORDERED: DEXTROSE 4 GM TAB.CHEW PO PRN (20:30)
[2016-11-29] MEDS ORDERED: SENNOSIDES 8.8 MG/5 ML ORAL SOL NG PRN (20:30)
[2016-11-29] MEDS ORDERED: BISACODYL 5 MG EC TABLET PO PRN (20:30)
[2016-11-29] MEDS ORDERED: MAGNESIUM HYDROXIDE 8%, 30ML UDC PO PRN (20:30)
[2016-11-29] MEDS ORDERED: DOCUSATE 100 MG CAPSULE PO SCH (21:00)
[2016-11-29] MEDS ORDERED: ATORVASTATIN 40 MG TABLET PO SCH (21:00)
[2016-11-29] MEDS ORDERED: GABAPENTIN 100 MG CAPSULE PO SCH (21:00)
[2016-11-29] MEDS ORDERED: INSULIN DETEMIR 100 UNITS/ML, PEN SQ-INSULIN SCH (21:30)
[2016-11-30] MEDS ORDERED: ATROPINE SYRINGE 0.1 MG/ML, 10ML ONE (01:00)
[2016-11-30] MEDS ORDERED: EPINEPHRINE SYRINGE 0.1 MG/ML, 10ML ONE ×2 (01:00→04:30)
[2016-11-30] MEDS ORDERED: PHENYLEPHRINE 20 MG in SODIUM CHLORIDE 0.9% 248 ML IV PRN (02:53)
[2016-11-30 04:26] LABS: WHITE BLOOD COUNT 17.9 x10^3/uL (3.4-10)
[2016-11-30 04:27] LABS: BLOOD UREA NITROGEN 56 mg/dL (7-18)
[2016-11-30] MEDS ORDERED: CODE BLUE RESPONSE XX ONE (04:30)
[2016-11-30] MEDS ORDERED: AMIODARONE 50 MG/ML, 3ML ONE (04:30)
[2016-11-30] MEDS ORDERED: MAGNESIUM SULFATE 1 GM/2 ML ONE (04:30)
[2016-11-30 04:49] LABS: HEMATOCRIT 20.4 % (39.2-51.8); HEMOGLOBIN 6.6 g/dL (13.7-18.0)
[2016-11-30 04:51] LABS: DIFF TOTAL CELLS COUNTED 100 CELL DIFF
[2016-11-30 04:56] LABS: VERIFY COUNTS? YES
[2016-11-30 04:57] LABS: ANISOCYTOSIS 1+
[2016-11-30 04:58] LABS: HYPOCHROMIA 1+; OVALOCYTES 1+; POLYCHROMASIA 1+
[2016-11-30 04:59] LABS: LARGE PLATELETS 1+
[2016-11-30] MEDS ORDERED: LINEZOLID PMX 600MG/300ML 300 ML IV SCH (07:30)
[2016-11-30] MEDS ORDERED: PANTOPROZOLE 40MG TABLET PO SCH (07:30)
[2016-11-30] MEDS ORDERED: ASPIRIN 81 MG TABLET CHEW PO SCH (09:00)
[2016-11-30] MEDS ORDERED: CLOPIDOGREL 75 MG TABLET PO SCH (09:00)
== END 2016-11-30 04:14 | disposition expired | DRG 235 ==
LOC: 5SO 08:56 → CCU 11-14 07:49 → 5SO 11-15 17:44 → CCU 11-23 14:33 → UNDODISIN 11-29 14:44
PROVIDERS: ADMIT Thoracic Surgery (Cardiothoracic Vascular Surgery)
PROC: 02100Z9 Bypass Coronary Artery, One Artery from Left Internal Mammary, Open Approach (ICD-10-PCS; principal; 2016-11-12)
PROC: 06BP0ZZ Excision of Right Saphenous Vein, Open Approach (ICD-10-PCS; 2016-11-12)
PROC: 06BR0ZZ (ICD-10-PCS; 2016-11-12)
PROC: 5A1221Z Performance of Cardiac Output, Continuous (ICD-10-PCS; 2016-11-12)
PROC: [UNRECOGNIZED PROCEDURE] (2016-11-12)
PROC: 30233R1 Transfusion of Nonautologous Platelets into Peripheral Vein, Percutaneous Approach (ICD-10-PCS; 2016-11-14)
PROC: 02HV33Z Insertion of Infusion Device into Superior Vena Cava, Percutaneous Approach (ICD-10-PCS; 2016-11-14)
PROC: 30233N1 Transfusion of Nonautologous Red Blood Cells into Peripheral Vein, Percutaneous Approach (ICD-10-PCS; 2016-11-19)
PROC: 30233N1 Transfusion of Nonautologous Red Blood Cells into Peripheral Vein, Percutaneous Approach (ICD-10-PCS; 2016-11-22)
PROC: 5A1D60Z (ICD-10-PCS; 2016-11-22)
PROC: 02HV33Z Insertion of Infusion Device into Superior Vena Cava, Percutaneous Approach (ICD-10-PCS; 2016-11-22)
PROC: B548ZZA Ultrasonography of Superior Vena Cava, Guidance (ICD-10-PCS; 2016-11-22)
PROC: 5A1935Z Respiratory Ventilation, Less than 24 Consecutive Hours (ICD-10-PCS; 2016-11-23)
PROC: 0BH17EZ Insertion of Endotracheal Airway into Trachea, Via Natural or Artificial Opening (ICD-10-PCS; 2016-11-23)
PROC: 0T9B70Z Drainage of Bladder with Drainage Device, Via Natural or Artificial Opening (ICD-10-PCS; 2016-11-23)
PROC: 30233N1 Transfusion of Nonautologous Red Blood Cells into Peripheral Vein, Percutaneous Approach (ICD-10-PCS; 2016-11-26)
PROC: 0W9B3ZZ Drainage of Left Pleural Cavity, Percutaneous Approach (ICD-10-PCS; 2016-11-27)
PROC: BB4BZZZ Ultrasonography of Pleura (ICD-10-PCS; 2016-11-27)
PROC: 5A12012 Performance of Cardiac Output, Single, Manual (ICD-10-PCS; 2016-11-30)
DX: I25.119 Atherosclerotic heart disease of native coronary artery with unspecified angina pectoris (principal); J96.00 Acute respiratory failure, unspecified whether with hypoxia or hypercapnia; I13.2 Hypertensive heart and chronic kidney disease with heart failure and with stage 5 chronic kidney disease, or end stage renal disease; I47.2 Ventricular tachycardia; N17.9 Acute kidney failure, unspecified; N18.6 End stage renal disease; E46 Unspecified protein-calorie malnutrition; I49.5 Sick sinus syndrome; E87.2 Acidosis; J95.811 Postprocedural pneumothorax; I46.9 Cardiac arrest, cause unspecified; I49.01 Ventricular fibrillation; E11.21 Type 2 diabetes mellitus with diabetic nephropathy; I48.91 Unspecified atrial fibrillation; E11.22 Type 2 diabetes mellitus with diabetic chronic kidney disease; E11.40 Type 2 diabetes mellitus with diabetic neuropathy, unspecified; E11.51 Type 2 diabetes mellitus with diabetic peripheral angiopathy without gangrene; E78.00 Pure hypercholesterolemia, unspecified; E78.5 Hyperlipidemia, unspecified; F17.210 Nicotine dependence, cigarettes, uncomplicated; E87.5 Hyperkalemia; E66.9 Obesity, unspecified; D63.1 Anemia in chronic kidney disease; E21.3 Hyperparathyroidism, unspecified; I25.5 Ischemic cardiomyopathy; I50.9 Heart failure, unspecified; F32.9 Major depressive disorder, single episode, unspecified; Z53.09 Procedure and treatment not carried out because of other contraindication; Z68.33 Body mass index [BMI] 33.0-33.9, adult; Z99.2 Dependence on renal dialysis; Z95.5 Presence of coronary angioplasty implant and graft; Z88.1 Allergy status to other antibiotic agents
CPT/HCPCS: 32555; 36415; 36556; 36600; 71010; 71020; 71250; 76937; 77001; 80048; 80053; 81001; 82040; 82306; 82330; 82800; 82803; 82810; 82947; 82962; 83036; 83615; 83735; 83970; 83986; 84100; 84132; 84145; 84155; 84157; 84295; 84478; 85014; 85018; 85025; 85049; 85347; 85520; 85610; 85730; 86704; 86706; 86850; 86900; 86923; 87040; 87070; 87081; 87086; 87205; 87340; 88112; 88305; 92950; 93005; 93306; 93312; 93321; 93325; 93454; 93880; 93970; 94002; 94003; 94150; 94640; C1894; J0461; J0583; J0697; J1644; J1815; J2001; J2250; J2310; J2405; J2543; J2597; J2704; J2720; J3010; J3370; J3475; J3480; J3490; J7120; J7189; J7620; P9045; P9047; C1751; C1760; C9113; J0171; J0282; J1642; J1940; J2270; J2370; J2440; J2930; J7030; J7050; J7060; P9016; P9035